=== PATIENT | male | born 1985 | race Caucasian/White ===

== ENCOUNTER 2018-06-21 08:55 | Outpatient (CLI) | payer MEDICAID, SELFPAY ==
[2018-06-21 09:53] LABS: Hemoglobin A1C 5.4 % (4.5-6.2)
[2018-06-21 10:14] LABS: ALT 39 U/L (12-78); AST 18 U/L (15-37); Albumin 4.1 g/dL (3.4-5.0); Alkaline Phosphatase 112 U/L (46-116); Anion Gap 9.4 mmol/L (3-11); BUN 13 mg/dL (7-18); Bilirubin, Total 0.6 mg/dL (0.2-1.0); CO2 24.6 mmol/L (21.0-32.0); CREATININE 0.96 mg/dL (0.70-1.30); Calcium 9.1 mg/dL (8.5-10.1); Chloride 104 mmol/L (98-107); Glucose 106 mg/dL (70-100); Sodium 138 mmol/L (136-145); Total Protein 7.4 g/dL (6.4-8.2)
[2018-06-22 15:24] LABS: Lyme Ab w Rflx to Lyme Confirm Negative
[2018-06-22 21:32] LABS: Anaplasma phagocytophilum Negative (Negative); B. miyamotoi PCR Negative (Negative); Babesia divergens/MO-1 Negative (Negative); Babesia duncani Negative (Negative); Babesia microti Negative (Negative); Ehrlichia chaffeensis Negative (Negative); Ehrlichia ewingii/canis Negative (Negative); Ehrlichia muris eauclairensis Negative (Negative)
== END 2018-06-21 08:56 ==
PROVIDERS: PCP Family Medicine; Visit Provider Nurse Practitioner Psychiatric/Mental Health
DX: F33.1 Major depressive disorder, recurrent, moderate (principal); S80.862A Insect bite (nonvenomous), left lower leg, initial encounter; W57.XXXA Bitten or stung by nonvenomous insect and other nonvenomous arthropods, initial encounter
CPT/HCPCS: 36415; 80053; 83036; 86618; 87798

== ENCOUNTER 2018-11-15 17:30 | Emergency (ER) | payer MEDICAID, SELFPAY ==
[2018-11-15 17:31] VITALS: PULSE 107; RESP 20; TEMP 36.9; O2SAT 98
--- NOTE | 2018-11-15 17:41 | NUR.NOTE ---
patient refuses hard collar at the moment, examined patient Nursing Note:
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
[2018-11-15] MEDS: LORazepam 2 MG/ML VIAL 0.5 MG IVP (18:00)
[2018-11-15] MEDS: Normal Saline 1,000 ML 150 ML IV (18:01)
--- NOTE | 2018-11-15 18:10 | NUR.NOTE ---
patient medicated per MD order Nursing Note:
--- NOTE | 2018-11-15 18:17 | NUR.NOTE ---
patient to DI Nursing Note:
[2018-11-15 18:18] LABS: Abs Immature Grans 0.02 k/cumm (0.0-0.09); Absolute Basophil Count 0.05 k/cumm (0.0-0.2); Absolute Monocyte Count 0.46 k/cumm (0.11-0.7); Absolute Neutrophil Count 4.39 k/cumm (1.2-6.7); Basophils % 0.6; Eosinophils % 1.2; HCT 52.2 % (40.0-50.0); HGB 18.1 g/dL (13.5-17.5); Immature Grans % 0.2; Lymphocytes % 38.9; Mean Corp. HGB Concentration 34.7 g/dL (32.0-36.0); Mean Corpuscular Hemoglobin 30.4 pg (27.0-33.0); Mean Corpuscular Volume 87.7 fL (80-95); Mean Platelet Volume 10.8 fL (8.0-11.0); Monocytes % 5.6; Neutrophils % 53.5; Platelet Count 346 x1000/uL (130-400); RBC 5.95 m/cumm (4.50-6.00); RBC Distribution Width 13.1 % (11.8-14.1); White Blood Cell Count 8.22 k/cumm (4.4-10.8)
--- NOTE | 2018-11-15 18:18 | NUR.NOTE ---
patient voided, no gross hematuria Nursing Note:
[2018-11-15 18:31] LABS: ALT 39 U/L (12-78); AST 20 U/L (15-37); Albumin 4.8 g/dL (3.4-5.0); Alkaline Phosphatase 116 U/L (46-116); Anion Gap 13.7 mmol/L (3-11); BUN 8 mg/dL (7-18); Bilirubin, Total 0.4 mg/dL (0.2-1.0); CO2 26.3 mmol/L (21.0-32.0); CREATININE 0.89 mg/dL (0.70-1.30); Calcium 9.4 mg/dL (8.5-10.1); Chloride 103 mmol/L (98-107); Glucose 99 mg/dL (70-100); Potassium 3.2 mmol/L (3.5-5.1); Sodium 143 mmol/L (136-145); Total Protein 8.8 g/dL (6.4-8.2)
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
--- NOTE | 2018-11-15 18:38 | NUR.NOTE ---
patient returned from CT, refuses c-collar, ambulated to restroom, Nursing Note:
[2018-11-15 18:43] VITALS: BP 134/94; PULSE 100; RESP 18; O2SAT 100
[2018-11-15] MEDS: Omnipaque 350 MG/ML 100 ML BTL IJ (19:06)
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
== END 2018-11-15 19:48 | disposition home or self-care (01) ==
PROVIDERS: Emergency Provider Emergency Medicine; PCP Family Medicine
DX: S20.229A Contusion of unspecified back wall of thorax, initial encounter (principal); S10.93XA Contusion of unspecified part of neck, initial encounter; V47.5XXA Car driver injured in collision with fixed or stationary object in traffic accident, initial encounter
CPT/HCPCS: 36415; 74177; 80053; 96361; 96374; 99285; 70450; 71260; 72125; 80320; 85025; 99284; J2060; J3490

== ENCOUNTER 2019-09-08 08:00 | Emergency (ER) | payer MEDICAID, SELFPAY ==
[2019-09-08] VITALS (47 sets, daily range): BP systolic 96–136; BP diastolic 59–91; PULSE 66–91; RESP 10–24; TEMP 37; O2SAT 89–99
[2019-09-08] MEDS: Normal Saline 1,000 ML 1000 ML IV (08:10)
[2019-09-08 08:25] LABS: Abs Immature Grans 0.03 k/cumm (0.0-0.09); Absolute Basophil Count 0.05 k/cumm (0.0-0.2); Absolute Lymphocyte Count 2.15 k/cumm (1.2-3.4); Absolute Monocyte Count 1.04 k/cumm (0.11-0.7); Absolute Neutrophil Count 9.31 k/cumm (1.2-6.7); Basophils % 0.4; Eosinophils % 0.6; HCT 46.3 % (40.0-50.0); HGB 15.7 g/dL (13.5-17.5); Immature Grans % 0.2; Mean Corp. HGB Concentration 33.9 g/dL (32.0-36.0); Mean Corpuscular Hemoglobin 29.9 pg (27.0-33.0); Mean Corpuscular Volume 88.2 fL (80-95); Mean Platelet Volume 10.3 fL (8.0-11.0); Monocytes % 8.2; Neutrophils % 73.6; Platelet Count 380 x1000/uL (130-400); RBC 5.25 m/cumm (4.50-6.00); RBC Distribution Width 12.9 % (11.8-14.1); White Blood Cell Count 12.65 k/cumm (4.4-10.8)
[2019-09-08 08:30] LABS: Absolute Eosinophil Count 0.08 k/cumm (0.0-0.7)
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
[2019-09-08 08:45] LABS: ALT 80 U/L (16-63); AST 30 U/L (15-37); Albumin 4.4 g/dL (3.4-5.0); Alkaline Phosphatase 138 U/L (46-116); Anion Gap 9.9 mmol/L (3-11); BUN 23 mg/dL (7-18); Bilirubin, Total 0.5 mg/dL (0.2-1.0); CO2 29.1 mmol/L (21.0-32.0); CREATININE 1.25 mg/dL (0.70-1.30); Calcium 9.3 mg/dL (8.5-10.1); Chloride 102 mmol/L (98-107); Glucose 79 mg/dL (70-100); Potassium 3.6 mmol/L (3.5-5.1); Sodium 141 mmol/L (136-145); TSH 0.63 uIU/mL (0.36-3.74); Total Protein 8.5 g/dL (6.4-8.2)
[2019-09-08 09:04] LABS: ETHANOL BLOOD < 3.0 mg/dL (<3)
[2019-09-08 09:20] LABS: Salicylate 3.5 mg/dL (2.8-20.0)
[2019-09-08] MEDS: LORazepam 2 MG/ML VIAL 0.5 MG IVP (09:40)
[2019-09-08 09:54] LABS: Acetaminophen < 2 ug/mL (10-30)
--- NOTE | 2019-09-08 12:20 | NUR.NOTE ---
Nursing Note: 2 bottles of medications were given to the [employer] Patching Machine Operator, who then gave them to the girlfriend of the patient. Kemi Ordoñez.
[2019-09-08] MEDS: LORazepam 1 MG TAB PO (13:56)
[2019-09-08 15:00] LABS: Bilirubin Negative (Negative); Blood Negative (Negative); Clarity Clear (Clear); Glucose Negative (Negative); Ketones Negative (Negative); Leukocyte Esterase Negative (Negative); Nitrite Negative (Negative); Specific Gravity 1.015 (1.005-1.025)
[2019-09-08 15:16] LABS: *AMPHETAMINES SCREEN URINE Negative (Negative); *BARBITURATES SCREEN URINE Negative (Negative); *BENZODIAZEPINES SCREEN URINE Negative (Negative); Cannabinoids THC POSITIVE (Negative); Cocaine Screen,Urine POSITIVE (Negative); METHADONE URINE SCREEN POSITIVE (Negative); OPIATES URINE SCREEN POSITIVE (Negative); Tricyclic Antidepressants Negative (Negative)
== END 2019-09-08 15:06 | disposition home or self-care (01) ==
PROVIDERS: Emergency Provider Nurse Practitioner Family; PCP Family Medicine
DX: T14.91XA Suicide attempt, initial encounter (principal); T42.6X2A Poisoning by other antiepileptic and sedative-hypnotic drugs, intentional self-harm, initial encounter; F41.9 Anxiety disorder, unspecified
CPT/HCPCS: 80053; 80307; 93005; 96361; 96374; 99285; 80320; 80329; 81003; 84443; 85025; 93010; J2060

== ENCOUNTER 2019-11-11 01:43 | Outpatient (CLI) | payer MEDICAID, SELFPAY | END 2019-11-11 02:03 | PROVIDERS: PCP Family Medicine; Visit Provider Nurse Practitioner Family | DX: Z79.899 Other long term (current) drug therapy (principal) | CPT/HCPCS: 93005; 93010 ==

== ENCOUNTER 2020-03-06 14:26 | Emergency (ER) | payer MEDICAID, SELFPAY ==
--- NOTE | 2020-03-06 14:30 | DI.RAD_ITS ---
EXAM: XR FOOT RT COMPLETE CLINICAL HISTORY: Crush injury. TECHNIQUE: 2D digital imaging was performed. COMPARISON: No exams were available for comparison FINDINGS: BONES: There is deformity seen in the base the middle phalanx of the right 3rd toe suspicious for a m ildly displaced fracture. No bony destructive lesion is seen. JOINTS: No dislocation present. SOFT TISSUE: Normal. IMPRESSION: Findings suspicious for mildly displaced fracture involving the base of the middle phalanx of the rig ht 3rd toe. Please correlate with the patient's site of pain. DATA REPOSITORY: RADIATION DOSE DELIVERED:
[2020-03-06 14:35] VITALS: BP 163/113; PULSE 95; RESP 14; TEMP 36.7; O2SAT 99
--- NOTE | 2020-03-06 14:35 | ED.GENADUL_ITS ---
Discharge Plan Disposition Patient Disposition: HOME Condition: Stable Discharge Details Chief Complaint: Orthopedic Clinical Impression: Crush injury of toe Primary Care Provider: Benigno Braswell ED Provider: Jennifer Blackmon Home Meds and New Rx's Prescriptions: No Action methylphenidate HCl 20 mg tablet 20 mg PO TID RF: 0 methadone 10 mg/mL concentrate 142 mg PO DAILY RF: 0 Discharge Instructions Instructions: Crush Injury (ED) Additional Instructions: Keep foot elevated, ice every 20 minutes for 3 to 5 days, use compression and postop shoe and be nonweightbearing as much as possible take Tylenol and ibuprofen every 4-6 hours with food as needed return for any problems with vascular severe pain not relieved by medications or any concerns or worsening. Follow up with primary care provider in 3-5 days. Return to ED sooner if any worsening or concerns. Increase oral fluids. Stand Alone Forms: Work Release Referrals: Benigno Braswell DO [Primary Care Provider] - Medical Decision Making 34-year-old male presents with right foot pain after dropping a trailer hitch o nto his foot at 8:00 this morning. He has been ambulatory on extremity. He does have a contusion noted at the base of his second and third toe. His third toe is swollen and tender to palpation. Cap refill is 3 seconds. Does have dorsal pedal pulses intact. No other tenderness to his ankle or foot calcaneal noted with palpation. Patient states he did not take any Tylenol or ibuprofen prior to arrival offered medication which he declined at this time. X-ray of foot ordered to rule out fracture. Patient given 100 mg ibuprofen p.o. in department x1. I personally reviewed images for foot x-ray. No obvious dislocation or fracture noted. Toes gustavo taped second third and fourth toes. Postop shoe ordered and crutches. Patient given home care instructions including rice rest ice compr ession elevation. Given red flags to return for. Verbalized understanding HPI General Mode of arrival: ambulatory . Date/Time Provider Initiated Documentation: 03/06/20 14:28 . Limitations to Documentation: no limitations . Information obtained by: patient . HPI Narrative: 34-year-old male presents with right foot pain after dropping a trailer hitch onto his foot at 8:00 this morning. He has been ambulatory on extremity. He does have a contusion noted at the base of his second and third toe. His third toe is swollen and tender to palpation. Cap refill is 3 seconds. Does have dorsal pedal pulses intact. No other tenderness to his ankle or foot calcaneal noted with palpation. Patient states he did not take any Tylenol or ibuprofen prior to arrival offered [facility] cation which he declined at this time. Related Data Home Medications Medication Instructions Recorded Confirmed methylphenidate HCl 20 mg tablet 20 mg PO TID tab 01/23/20 03/06/20 methadone 10 mg/mL oral concentrate 142 mg PO DAILY ml 01/30/20 03/06/20 Allergies Allergy/AdvReac Type Severity Reaction Status Date / Time Sulfa (Sulfonamide Allergy Severe Anaphylaxsi Verified 03/06/20 14:41 Antibiotics) s General ABBY: 2 Review of Systems Narrative: Constitutional: Negative for weight loss, alert and oriented, well groomed, normal body habitus, appears comfortable. HEENT: Denies trauma, headaches, blurry vision, nasal discharge, sore throat, trouble swallowing. Chest: Denies chest pain, palpitations, irregular rhythm, hypertension. Respiratory: Denies Shortness of breath, cough, hemoptysis. GI: Denies abdominal pain, nausea, vomiting, diarrhea, constipation. : Denies dysuria, hematuria, flank pain, rectal bleeding. Extremities: Complaining of right foot pain after a crushing type injury. Neuro: Denies dizziness, blurry vision, weakness, syncope, headache or facial numbness. Hematologic: Denies easy bruising, intolerance to heat or cold, hair loss. [facility] Medical History ADHD (Acute) [facility] History of substance abuse (Acute) Major depressive disorder ([facility] ([facility]) dependence, daily use (Acute) [facility] Family History Mother , MVA at age 30. Asthma Father No problems noted. Sister No problems noted. Sister No problems noted. 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 Appears stated age. Normal body habitus. Head: Normocephalic, no trauma. Eyes: Pupils PERRLA, Red reflex noted, EOM's intact. Eyelids symmetrical without lesions, discharge, or swelling. ENT: Bilateral TM's WNL, External ear normal to inspection, no mastoid TTP, swelling, or erythema, Nasal turbinates WNL, no nasal discharge. Normal dentition, Posterior pharynx WNL, no exudate. Chest: RRR, Normal S1, S2, distal pulses intact. Resp: Lungs clear to auscultation bilaterally, no wheezes, rales, or rhonchi. Musculoskeletal: Normal gait, 5/5 strength to all four extremities. Dorsum of his right foot contused at the base of his second and third toes. Third toe is swollen tender to palpation. Cap refill is 3 seconds. Does have intact dorsal pedal pulse. No other tenderness or obvious deformity noted to his calcaneal, ankle, or foot. Skin: No suspicious rashes or lesions. Capillary refill less than 2 sec. Neurologic: Cranial nerves II-XII intact. Alert and oriented x 3. DTR's intact. Hematologic/Lymphatic: No ecchymosis, no lymphadenopathy.
[2020-03-06] MEDS: Ibuprofen 800 MG TAB PO (14:51)
[2020-03-06 16:00] VITALS: BP 163/113; PULSE 95; RESP 14; TEMP 36.7; O2SAT 99
--- NOTE | 2020-03-07 12:04 | ED.FU.B_ITS ---
Phone call placed to patient regarding yesterday's visit. After reviewing x- rays does appear to have possibly a fracture noted to the base of his third phalanx. At the time of discharge patient was given crutches and a postop shoe and gustavo tape which would have been the appropriate treatment. Voicemail left on patient's cell phone.
== END 2020-03-06 16:03 | disposition home or self-care (01) ==
PROVIDERS: Emergency Provider Registered Nurse Emergency; PCP Family Medicine
DX: S97.121A Crushing injury of right lesser toe(s), initial encounter (principal); S90.121A Contusion of right lesser toe(s) without damage to nail, initial encounter; W20.8XXA Other cause of strike by thrown, projected or falling object, initial encounter
CPT/HCPCS: 99284; 73630; 99283; E0114

== ENCOUNTER 2022-12-18 10:28 | Emergency (ER) | payer MEDICAID, SELFPAY ==
--- NOTE | 2022-12-18 10:30 | DI.RAD_ITS ---
Exam(s) XR FINGER RT MIDDLE EXAM: XR FINGER RT MIDDLE CLINICAL HISTORY: dorsal injury/lac, ? FB. TECHNIQUE: 2D digital imaging was performed. Three views. COMPARISON: CR RIGHT HAND COMPLETE from 02/10/2017 FINDINGS: BONES: No acute fracture is present. No bony destructive lesion is seen. JOINTS: No dislocation present. SOFT TISSUE: Swelling distal phalanx and nail bed. No foreign bodies in this location. Calcificatio ns along in the soft tissues along the distal aspect of the proximal phalanx without visible overlyin g swelling or air.. This was not seen on 2017 exam but may not be related to the current injury. IMPRESSION: Soft tissue injury. DATA REPOSITORY: RADIATION DOSE DELIVERED:
[2022-12-18 10:33] VITALS: BP 147/86; PULSE 83; RESP 18; TEMP 36.8; O2SAT 97
--- NOTE | 2022-12-18 10:41 | ED.GENADUL_ITS ---
Discharge Plan Disposition Patient Disposition: Home Condition: Improving Discharge Details Clinical Impression: Foreign body of finger of right hand, Laceration of right middle finger Primary Care Provider: Benigno Brawsell ED Provider: Bhupinder Vela Home Meds and New Rx's Prescriptions: New cephalexin 500 mg capsule 500 mg PO TID 5 Days Qty: 15 0RF Continued methylphenidate HCl 20 mg tablet 20 mg PO TID Label Comments: 12/24/2019 [facility] ov Rx Instructions: takes as 40 mg in the AM, 20 mg in PM methadone 10 mg/mL concentrate 147 mg PO DAILY Label Comments: 03/27/20-reported per MARGARITA divalproex [Depakote] 500 mg Tablet,Delayed Release (Dr/Ec) 500 mg PO DAILY Discharge Instructions Instructions: Finger Laceration (ED) Additional Instructions: Elevate the hand above the level of the heart to reduce pain and swelling. May use Tylenol 650 to 1000 mg every 6 hours, and/or ibuprofen 600 to 800 mg every 8 hours as needed for pain. You may apply cool compress/ice to area to reduce discomfort. We will refer you to orthopedics for follow-up. The orthopedic office number is [phone]. Return if you develop a fever, foul-smelling drainage from the wound, or any other acute concerns. Please take the antibiotics as prescribed until finished. Medical Decision Making 37-year-old male suffered a right long finger laceration from shards of glass while hanging a television. Questions whether there is residual foreign body present. No motor or sensory dysfunction. Patient's tetanus is up-to-date. He was referred for x-ray which does reveal retained glass fragments. The patient was anesthetized, the wound was explored and irrigated, was able to remove 2 large glass fragments but did not appreciate others. I will place him on a course of antibiotics. We will ask for him to follow-up in orthopedic clinic to ensure good wound healing and no persistent effects of the retained foreign body. 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 He is stable and understands follow-up and return precautions HPI General Mode of arrival: ambulatory . Date/Time Provider Initiated Documentation: 12/18/22 10:28 . Limitations to Documentation: no limitations . Information obtained by: patient . History of Present Illness 37 year old M presents to the emergency department with the chief complaint of Right long finger injury/laceration, described as mild, and is localized to the right and upper extremity. Patient reports no radiation. Patient started experienc ing this hour(s) and it has been constant. No relieving factors improve symptom(s), No exacerbating factors reported . Patient notes denies weakness. Patient did receive the following treatments prior to arrival, none Related Data Home Medications Medication Instructions Recorded Confirmed methylphenidate HCl 20 mg tablet 20 mg PO TID 01/23/20 12/18/22 methadone 10 mg/mL oral concentrate 147 mg PO DAILY 03/27/20 12/18/22 cephalexin 500 mg capsule 500 mg PO TID 5 days #15 caps 12/18/22 divalproex 500 mg tablet,delayed 500 mg PO DAILY 12/18/22 12/18/22 release (Depakote) Previous Rx's Medication Instructions Recorded cephalexin 500 mg capsule 500 mg PO TID 5 days #15 caps 12/18/22 Allergies Allergy/AdvReac Type Severity Reaction Status Date / Time Sulfa (Sulfonamide Allergy Severe Anaphylaxsi Verified 12/18/22 10:38 Antibiotics) s General Stated Complaint: Laceration ABBY: 4 Review of Systems Narrative: Tetanus up-to-date. No numbness or weakness of the hand. No other injury. PFSH All Active Problems (Updated 12/18/22 @ 11:24 by Bhupinder Vela MD) Foreign body of finger of right hand (Acute) Laceration of right middle finger (Acute) Polysubstance (including opioids) dependence, daily use (Acute) [facility] Zehra ADHD (Acute) [facility] Zehra Major depressive disorder (Chronic) [facility] Zehra Tobacco abuse disorder (Acute) Displaced fracture of body of hamate [unciform] bone, right wrist, initial encounter for closed fracture (Acute) Closed displaced fracture of body of hamate of right wrist with routine healing (Acute 12/16/16) Medical History History of substance abuse Family History Mother , MVA at age 30. Asthma Father No problems noted. Sister No problems noted. Sister No problems noted. 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 Pleasant, well groomed, interactive. HEAD: Normocephalic, atraumatic ENT: Mucous membranes moist, oropharynx unremarkable, External ear exam unremarkable EYES: PERRL, EOMI NECK: Full ROM, no REINALDO, no menigismus CHEST/RESP: No respiratory distress EXT: Full ROM, the right long finger has a laceration on the dorsal surface overlying of the distal proximal phalanx. Normal distal sensation and motor is preserved. Neuro: Grossly normal neurologic exam, conversant, interactive. Psych: Speech fluent, thoughts congruent, affect normal Course Vital Signs Vital signs: Vital Signs Temperature 36.8 C 12/18/22 10:33 Pulse 83 12/18/22 10:33 Respiratory Rate 18 12/18/22 10:33 Blood Pressure 147/86 H 12/18/22 10:33 Pulse Oximetry 97 12/18/22 10:33 Temperature 36.8 C 12/18/22 10:33 Temperature Source Skin 12/18/22 10:33 Pulse 83 12/18/22 10:33 Respiratory Rate 18 12/18/22 10:33 Respiratory Effort 12/18/22 10:38 Blood Pressure 147/86 H 12/18/22 10:33 Blood Pressure Position Sitting 12/18/22 10:33 Pulse Oximetry 97 12/18/22 10:33 Oxygen Delivery Method Room Air 12/18/22 10:33 Oxygen Flow Rate 0 12/18/22 10:33 Procedures Laceration Laceration 1: Site: hand Side (If applicable): right Size (cm): 2.5 Description: stellate and flap Depth: simple, single layer Local Anesthetic: Lidocaine 1% Amount of anesthesia used (mL): 3 Pre-repair: wound explored and irrigated extensively Skin layer closed with: other (Prolene) Size (cm): 4-0 Number of sutures: 5
--- NOTE | 2022-12-18 11:06 | DI.VRAD_ITS ---
PROCEDURE INFORMATION: Exam: XR Right Finger(s) Exam date and time: 12/18/2022 10:53 AM Age: 37 years old Clinical indication: Injury or trauma; Other: Cut by glass, ? fb; Laceration; Right; Middle finger; Patient HX: Dorsal injury/lac, ? fb TECHNIQUE: Imaging protocol: Radiologic exam of the Right fingers. Views: Minimum 2 views. COMPARISON: CR RIGHT HAND COMPLETE 02/10/2017 10:29 AM FINDINGS: Bones/joints: No acute fracture or dislocation. Joint spaces maintained. Soft tissues: Middle finger swelling. Irregular discontinuous linear densities in the dorsal soft tissues overlying the middle finger proximal phalanx consistent with retained foreign bodies. IMPRESSION: Retained glass fragments within the dorsal soft tissues overlying the middle finger proximal phalanx. Dictated and Authenticated by: Joshua Marino MD. Ordering:NEREIDA Roe MD
== END 2022-12-18 11:53 | disposition home or self-care (01) ==
PROVIDERS: Emergency Provider Emergency Medicine; PCP Family Medicine
DX: S61.222A Laceration with foreign body of right middle finger without damage to nail, initial encounter (principal); W25.XXXA Contact with sharp glass, initial encounter; Y93.89 Activity, other specified
CPT/HCPCS: 12031; 99283; 73140; 99284

== ENCOUNTER 2022-12-23 08:06 | Emergency (ER) | payer MEDICAID, SELFPAY ==
[2022-12-23 08:09] VITALS: BP 165/100; PULSE 79; RESP 17; TEMP 37.4; O2SAT 100
--- NOTE | 2022-12-23 08:25 | W.ED.GENAD ---
Discharge Plan Disposition Patient Disposition: Home Condition: Stable Discharge Details Clinical Impression: Puncture wound of forearm, right Primary Care Provider: Benigno Braswell ED Provider: Jak Gould Home Meds and New Rx's Prescriptions: New cephalexin 500 mg capsule 500 mg PO QID 5 Days Qty: 20 0RF ibuprofen 800 mg tablet 800 mg PO TID PRNQty: 20 0RF Continued methylphenidate HCl 20 mg tablet 20 mg PO TID Label Comments: 12/24/2019 [facility] ov Rx Instructions: takes as 40 mg in the AM, 20 mg in PM methadone 10 mg/mL concentrate 147 mg PO DAILY Label Comments: 03/27/20-reported per MARGARITA divalproex [Depakote] 500 mg Tablet,Delayed Release (Dr/Ec) 500 mg PO DAILY Rx Instructions: Pt reports he is no longer taking this medication Discharge Instructions Instructions: Puncture Wound (ED) Additional Instructions: Ibuprofen and Keflex as directed. Rest, elevate, cool compresses every 2 hours for 20 minutes. Change dressing at least once daily. Wear sling to avoid movement of your arm, be sure to do passive range of motion of your shoulder at least 4 times daily to avoid a frozen shoulder. Please watch for new or worsening symptoms and return to the ER for any concerns. I personally spoke with our orthopedic team, Dr. Gomez, he will follow you in his office next week. I have placed you on the orthopedic list to help expedite this process. Please contact his office later today or first thing Monday. Referrals: Kali Gomez MD [ [facility] STAFF PHYSICIAN] - Medical Decision Making This is a 37-year-old gentleman, tetanus status up-to-date, [id number], reports that he was loading his electric darrel into his truck, in the process the lever broke and he sustained a deep laceration-puncture wound to his right forearm. Denies any other injury. Reports moderate pain, bleeding, paresthesias in his forearm and specifically his fourth and fifth digits. Clinically he appears neuro, vascular, tendon intact. Given the mechanism of injury, will obtain CTA of the right upper extremity for further evaluation CTA unremarkable. Case then discussed with Dr. Gomez, orthopedics. Does not believe that surgical washout is necessary at this time. Recommends thorough washout and loose approximation. 2 g of Rocephin now, provide an additional 5 days of oral Keflex. Sling for comfort. He will see the patient in the office next week. I did relay this conversation with the patient and then placed the patient on the orthopedic list. Upon reevaluation patient appears well, calm. He is now moving his wrist and fingers much more freely. Remains neuro, vascular, tendon intact. No evidence of decompensation. No evidence of compartment syndrome Laceration thoroughly irrigated, cleaned, loosely approximated, please see procedural note. Patient received his 2 g IV Rocephin. The wound was then appropriately dressed with a compression antibiotic dressing and a sling applied. We did discuss the importance of passive range of motion to avoid frozen shoulder. Standard discharge and return precautions were provided. Patient understands, is agreeable to this plan, and has no additional questions or concerns upon discharge. This documentation was generated using Finderyation system, please disregard any oddities of phrase or misspellings. Medical Records Medical records reviewed: Yes I reviewed the patient's medical records. Imaging Data Radiologic Study: Attestation: I personally reviewed and interpreted this imaging study as follows: Imaging: CT Scan Radiologist's impression: Exam(s) CT UPPER EXTREMITY RT CTA EXAM: CT UPPER EXTREMITY RT CTA CLINICAL HISTORY: 4 cm puncture to R forearm TECHNIQUE: Imaging Protocol: Axial computed tomography images with coronal and sagittal reformatted images were created and reviewed. CONTRAST MATERIAL: Intravenous: Omnipaque 350 Contrast volume:structured data in ml Contrast route:IV - Oral: yes / no COMPARISON: CT Private^CAP_WITH (Adult) from 11/15/2018 CR,XR XR FINGER RT MIDDLE from 12/18/2022 FINDINGS: Osseous: No fractures evident. Soft tissues: Large volar form aspect wound with skin and subdermal tissue loss. Hematoma evident as well as some deeper tissue gas bubbles. Vascular: The radial and ulnar arteries are intact. The inter osseous artery is intact. Brachial artery is intact. IMPRESSION: Volar forearm large soft tissue wound. No laceration of the arteries evident. Lab Data Lab results reviewed: Yes I reviewed the patient's lab results. Labs: Laboratory Tests Range/Units 12/23/22 12/23/22 08:30 08:30 WBC (4.4-10.8) 10^3/uL 15.57 H RBC (4.36-5.78) 10^6/uL 5.42 Hgb (13.5-17.5) g/dL 16.0 Hct (40.0-50.0) % 47.8 MCV (80-95) fL 88 MCH (27.0-33.0) pg 29.5 MCHC (32.0-36.0) % 33.5 RDW (11.8-14.1) % 12.6 Plt Count (130-400) 10^3/uL 319 MPV (8.0-11.0) fL 10.5 Immature Gran % 0.4 Neutrophils % 75.6 Lymphocytes % 17.2 Monocytes % 5.7 Eosinophils % 0.7 Basophils % 0.4 Nucleated RBC % (0.0-0.3) % 0.0 Absolute Neutrophils (1.2-6.7) 10^3/uL 11.77 H Absolute Lymphocytes (1.2-3.4) 10^3/uL 2.68 Absolute Monocytes (0.1-0.8) 10^3/uL 0.89 H Absolute Eosinophils (0.0-0.7) 10^3/uL 0.11 Absolute Basophils (0.0-0.2) 10^3/uL 0.06 Sodium (136-145) mmol/L 142 Potassium (3.5-5.1) mmol/L 3.8 Chloride (98-107) mmol/L 104 Carbon Dioxide (21.0-32.0) mmol/L 28.7 Anion Gap (3-11) mmol/L 9.3 BUN (7-18) mg/dL 19 H Creatinine (0.70-1.30) mg/dL 1.0 Est GFR (CKD-EPI 2020) (mL/min/1.73m2) 99.41 Glucose (74-106) mg/dL 107 H Calcium (8.5-10.1) mg/dL 9.4 Total Bilirubin (0.2-1.0) mg/dL 0.7 AST (15-37) U/L 18 ALT (16-63) U/L 18 Alkaline Phosphatase (46-116) U/L 103 Total Protein (6.4-8.2) g/dL 8.0 Albumin (3.4-5.0) g/dL 4.5 HPI General Mode of arrival: ambulatory. Date/Time Provider Initiated Documentation: 12/23/22 08:23. Limitations to Documentation: no limitations. Information obtained by: patient. History of Present Illness 37 year old M presents to the emergency department with the chief complaint of R arm lac, described as moderate, with intensity rated at 7. Quality is described as aching, and is localized to the right and upper extremity. Patient reports no radiation. Patient started experiencing this hour(s) (1) and it has been constant. No relieving factors improve symptom(s), Movement worsens symptoms . Patient notes no other symptoms.. Patient did receive the following treatments prior to arrival, none Related Data Home Medications Medication Instructions Recorded Confirmed methylphenidate HCl 20 mg tablet 20 mg PO TID 01/23/20 12/23/22 methadone 10 mg/mL oral concentrate 147 mg PO DAILY 03/27/20 12/23/22 divalproex 500 mg tablet,delayed 500 mg PO DAILY 12/18/22 12/23/22 release (Depakote) cephalexin 500 mg capsule 500 mg PO QID 5 days #20 caps 12/23/22 ibuprofen 800 mg tablet 800 mg PO TID PRN #20 tabs 12/23/22 Previous Rx's Medication Instructions Recorded cephalexin 500 mg capsule 500 mg PO QID 5 days #20 caps 12/23/22 ibuprofen 800 mg tablet 800 mg PO TID PRN #20 tabs 12/23/22 Allergies Allergy/AdvReac Type Severity Reaction Status Date / Time Sulfa (Sulfonamide Allergy Severe Anaphylaxsi Verified 12/23/22 08:17 Antibiotics) s General Stated Complaint: Laceration ABBY: 3 Review of Systems Constitutional Constitutional: Denies fever(s) and Denies weakness Musculoskeletal Musculoskeletal: Denies arthralgias, Denies numbness, Reports stiffness and Reports tingling Integumentary/Breasts Skin/Breast: Denies erythema and Denies rash Neurologic Neurologic: Denies numbness, Reports tingling and Denies weakness [facility] All Active Problems (Updated 12/23/22 @ 11:05 by AMADOR Stevenson) Foreign body of finger of right hand (Acute) Laceration of right middle finger (Acute) Puncture wound of forearm, right (Acute) Polysubstance (including opioids) dependence, daily use (Acute) [facility] Zehra ADHD (Acute) [facility] Zehra Major depressive disorder (Chronic) [facility] Mathieson Tobacco abuse disorder (Acute) Displaced fracture of body of hamate [unciform] bone, right wrist, initial encounter for closed fracture (Acute) Closed displaced fracture of body of hamate of right wrist with routine healing (Acute 12/16/16) Medical History History of substance abuse Family History Mother , MVA at age 30. Asthma Father No problems noted. Sister No problems noted. Sister No problems noted. 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 What type of physical activity do you participate in: other Details: physically active daily Seatbelt use: always Drive intox or ride w/intox 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 car 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: No Working smoke detector in home: Yes Carbon monox detector in home: Yes Do you feel safe at home: Yes Do you feel safe in your relationship?: Yes Exam Const General: cooperative, healthy appearing, anxious (Slightly) and other (Mildly uncomfortable) Orientation: alert and awake HENID Head: normal to inspection, normocephalic and atraumatic Eyes Conjunctivae: conjunctivae normal Neck Neck: normal visual inspection, full ROM, trachea midline and supple Resp Effort & Inspection: normal respiratory effort and able to speak in complete sentences Cardio Rate: regular rate Rhythm: regular rhythm Skin General skin exam: no rashes or lesions noted Neuro General: patient alert, patient awake, moves all extremities and no focal motor deficits Cognition: normal cognition Speech: speech normal Gait: normal gait Sensory Exam: no sensory deficits noted and normal double simultaneous stimulation Extrem General: capillary refill normal Elbow/forearm/wrist images: 1. 5 cm laceration with active oozing, no obvious arterial bleed or foreign body. There is localized tenderness throughout as well as swelling. No erythema or warmth. Patient reports subjective paresthesias to his fourth and fifth digit but neurologically this appears to be intact. Normal capillary refill and radial pulse. Full range of motion at his elbow. Patient is able to both flex and extend his wrist although reports increased pain with extension. Patient is able to wiggle all of his fingers. Reports increased pain with movement of his third, fourth, fifth digits. The patient is able to nearly make a full fist, able to fully extend his fingers. Other: 5 sutures intact right third digit, no signs of infection. Psych Appearance: grossly normal Mental Status: mental status grossly normal Course Vital Signs Vital signs: Vital Signs Temperature 37.4 C 12/23/22 08:09 Pulse 79 12/23/22 08:09 Respiratory Rate 17 12/23/22 08:09 Blood Pressure 165/100 H 12/23/22 08:09 Pulse Oximetry 100 12/23/22 08:09 Temperature 37.4 C 12/23/22 08:09 Temperature Source Temporal Artery Scan 12/23/22 08:09 Pulse 79 12/23/22 08:09 Respiratory Rate 17 12/23/22 08:09 Respiratory Effort 12/23/22 08:14 Blood Pressure 165/100 H 12/23/22 08:09 Blood Pressure Position Sitting 12/23/22 08:09 Pulse Oximetry 100 12/23/22 08:09 Oxygen Delivery Method Room Air 12/23/22 08:09 Oxygen Flow Rate 0 12/23/22 08:09 Pain Level 8 12/23/22 08:14 Procedures Laceration Laceration 1: Site: upper extremity Side (If applicable): right Size (cm): 5 Description: linear and clean Depth: simple, single layer Local Anesthetic: Lidocaine 2%, Bupivicaine 0.5%, with Epi and other anesthetic ([id number] mixture) Amount of anesthesia used (mL): 10 Pre-repair: wound explored, irrigated extensively and deep structures intact Skin layer closed with: nylon Size (cm): 4-0 Number of sutures: 4 Technique: simple, interrupted (loose approximation)
[2022-12-23 08:46] VITALS: BP 129/83; PULSE 76; O2SAT 100
[2022-12-23 08:50] LABS: Abs Immature Grans 0.06 10^3/uL (0.0-0.06); Absolute Basophil Count 0.06 10^3/uL (0.0-0.2); Absolute Eosinophil Count 0.11 10^3/uL (0.0-0.7); Absolute Lymphocyte Count 2.68 10^3/uL (1.2-3.4); Absolute Monocyte Count 0.89 10^3/uL (0.1-0.8); Absolute Neutrophil Count 11.77 10^3/uL (1.2-6.7); Basophils % 0.4; Eosinophils % 0.7; HCT 47.8 % (40.0-50.0); Immature Grans % 0.4; Lymphocytes % 17.2; MCH 29.5 pg (27.0-33.0); MCHC 33.5 % (32.0-36.0); MCV 88 fL (80-95); MPV 10.5 fL (8.0-11.0); Monocytes % 5.7; Neutrophils % 75.6; Platelet Count 319 10^3/uL (130-400); RBC 5.42 10^6/uL (4.36-5.78); RDW 12.6 % (11.8-14.1); RDW-SD 40.7 fL; WBC 15.57 10^3/uL (4.4-10.8)
[2022-12-23 08:59] LABS: ALT 18 U/L (16-63); AST 18 U/L (15-37); Albumin 4.5 g/dL (3.4-5.0); Alkaline Phosphatase 103 U/L (46-116); Anion Gap 9.3 mmol/L (3-11); BUN 19 mg/dL (7-18); Bilirubin, Total 0.7 mg/dL (0.2-1.0); CO2 28.7 mmol/L (21.0-32.0); Calcium 9.4 mg/dL (8.5-10.1); Chloride 104 mmol/L (98-107); Estimated GFR 99.41 (mL/min/1.73m2); Glucose 107 mg/dL (74-106); Potassium 3.8 mmol/L (3.5-5.1); Sodium 142 mmol/L (136-145)
[2022-12-23] MEDS: Omnipaque 350 MG/ML 100 ML BTL IJ (09:04)
[2022-12-23] MEDS: Normal Saline - Diluent 50 ML VIAL IJ (09:08)
--- NOTE | 2022-12-23 09:08 | DI.CT_ITS ---
Exam(s) CT UPPER EXTREMITY RT CTA EXAM: CT UPPER EXTREMITY RT CTA CLINICAL HISTORY: 4 cm puncture to R forearm TECHNIQUE: Imaging Protocol: Axial computed tomography images with coronal and sagittal reformatted images were created and reviewed. CONTRAST MATERIAL: Intravenous: Omnipaque 350 Contrast volume:structured data in ml Contrast route:I V - Oral: yes / no CR,XR XR FINGER RT MIDDLE from 12/18/2022 FINDINGS: Osseous: No fractures evident. Soft tissues: Large volar form aspect wound with skin and subdermal tissue loss. Hematoma evident as well as some deeper tissue gas bubbles. Vascular: The radial and ulnar arteries are intact. The inter osseous artery is intact. Brachial ar chin is intact. IMPRESSION: Volar forearm large soft tissue wound. No laceration of the arteries evident. Called by myself to ER provider. RADIATION DOSE DELIVERED: 90.38mGy.cm Total DLP DATA REPOSITORY: All CT scans at this facility are submitted to the National Radiology Data Registry (NRDR) Dose Index Registry (DIR) with the [employer] ([employer]). RADIATION OPTIMIZATION: All CT scans at this facility use at least one of these dose optimization te chniques: automated exposure control; mA and/or kV adjustment per patient size (includes targeted exa ms where dose is matched to clinical indication); or iterative reconstruction.
[2022-12-23] MEDS: cefTRIAXone 2 GM/50 ML BAG IVPB (10:19)
[2022-12-23] MEDS: Bupivacaine 0.5% Pres-Free 30 ML VIAL (10:23)
[2022-12-23 11:18] VITALS: BP 143/90; PULSE 84; RESP 18; TEMP 37; O2SAT 97
--- NOTE | 2022-12-26 13:24 | NUR.NOTE ---
patient called to state his abx was finished and wonder if he was supposed to be on more abx as his appt with his new pcp is not until monday and wound is starting to look red with possible infection. advised patient he would need to come back in and be reassessed. patient states he does not have a ride and would have to call the ambulance for transfer.
== END 2022-12-23 11:20 | disposition home or self-care (01) ==
PROVIDERS: Emergency Provider Physician Assistant; PCP Family Medicine
DX: S51.831A Puncture wound without foreign body of right forearm, initial encounter (principal); F90.9 Attention-deficit hyperactivity disorder, unspecified type; W26.8XXA Contact with other sharp object(s), not elsewhere classified, initial encounter; Y93.89 Activity, other specified
CPT/HCPCS: 12002; 36415; 73206; 80053; 96365; 99285; 85025; 99284; J3490

== ENCOUNTER 2024-03-07 00:26 | Emergency (ER) | payer MEDICAID, SELFPAY ==
[2024-03-07] VITALS (72 sets, daily range): BP systolic 92–134; BP diastolic 44–95; PULSE 70–88; RESP 10–27; TEMP 36.5–36.6; O2SAT 97–98
--- NOTE | 2024-03-07 00:45 | DI.CT_ITS ---
Exam(s) CT HEAD WO EXAM: CT HEAD WO CLINICAL HISTORY: possible syncope. TECHNIQUE: Imaging Protocol: Axial computed tomography images with coronal and sagittal reformatted images were created and reviewed COMPARISON: CT CT HEAD CERVICAL SPINE WO from 11/15/2018 FINDINGS: Ventricles and Extra axial spaces: Normal in size and morphology for the patient's age. Hemorrhage: None. Cerebral parenchyma: Normal. Midline shift: None. Brainstem/Cerebellum: Normal. Calvarium: Normal. Visualized Paranasal sinuses/Mastoids: Clear. Soft Tissues: Unremarkable. IMPRESSION: No acute intracranial process. RADIATION DOSE DELIVERED: 654.21mGy.cm Total DLP DATA REPOSITORY: All CT scans at this facility are submitted to the National Radiology Data Registry (NRDR) Dose Index Registry (DIR) with the [employer] (A[employer]). RADIATION OPTIMIZATION: All CT scans at this facility use at least one of these dose optimization te chniques: automated exposure control; mA and/or kV adjustment per patient size (includes targeted exa ms where dose is matched to clinical indication); or iterative reconstruction.
--- NOTE | 2024-03-07 00:45 | RT.EKG_ITS ---
APPROVED REPORT Exam: Resting ECG Reason for Exam: possible syncope Patient Location: E HR:72 bpm ECG Measurements Heart Rate 72 AXIS DE 153 P 80 QRSd 94 QRS 100 QT 399 T 32 QTc 435 Conclusion Sinus rhythm...normal P axis, V-rate 60- 99 Right axis deviation...QRS axis (100,269) appropriate intervals no ST segment or T wave abnormalities to suggest occluisve [place]
--- NOTE | 2024-03-07 01:00 | ED.GENADUL_ITS ---
Discharge Plan Disposition Patient Disposition: Home Condition: Good Discharge Details Clinical Impression: Medication reaction Primary Care Provider: Unknown,Unknown ED Provider: Marisela Jaramillo Home Meds and New Rx's Prescriptions: Continued mirtazapine 15 mg tablet 15 mg PO ONCE PRN Patient Comments: TAKE 1/2 TO 1 TABLET BY MOUTH AT NIGHT 1 HOUR BEFORE BEDTIME NEEDED FOR SLEEPLESSNESS OR INSOMNIA ibuprofen 600 mg tablet 600 mg PO Q6H PRN Patient Comments: TAKE 1 TABLET BY MOUTH EVERY 6 HOURS NEEDED FOR BREAKTHROUGH PAIN ondansetron 4 mg tablet,disintegrating 4 mg PO Q8H PRN Patient Comments: DISSOLVE 1 TABLET ON THE TONGUE EVERY 8 HOURS NEEDED FOR NAUSEA OR VOMITING clonidine HCl 0.1 mg tablet 0.1 mg PO Q6H PRN Patient Comments: TAKE 1-2 TABLETS BY MOUTH EVERY 4-6 HOURS NEEDED FOR SWEATING / ANXIETY / RESTLESSNESS. TAKE WITH FOOD AND FLUIDS. HOLD IF DIZZINESS bupropion HCl 150 mg tablet extended release 24 hr 300 mg PO ONCE Patient Comments: START WITH 1 TABLET BY MOUTH DAILY FOR 3 DAYS AND THEN INCREASE TO 2 TABLETS DAILY IN THE MORNING clonazepam 0.5 mg tablet 0.5 mg PO BID PRN Patient Comments: TAKE 1 TABLET BY MOUTH UP TO TWICE DAILY NEEDED FOR ANXIETY OR WITHDRAWALS SYMPTOMS hydroxyzine HCl 50 mg tablet 50 mg PO Q6H Patient Comments: TAKE 1 TABLET BY MOUTH EVERY 6 HOURS NEEDED FOR ANXIETY OR WITHDRAWALS OR SYMPTOMS ibuprofen 800 mg tablet 600 mg PO TID PRN Held buprenorphine-naloxone [Suboxone] 8-2 mg film 3 film sublingual DAILY Hold Instructions: Resume on 03/07/24. Discuss with your prescriber before taking Rx Instructions: use only 2 strips/tabs in mouth at one time, 1 under (each) side of tongue Discharge Instructions Instructions: Buprenorphine/Naloxone (Into the mouth) Additional Instructions: Do not take your suboxone until you discuss with your prescriber. You can continue to take your comfort meds. Continue to avoid opiates or illegal drugs. Call your primary care doctor today to schedule an appoitnment within the next 3 days to follow up on your visit here. Return to the emergency department for new or worsening symptoms including chest pain, difficulty breathing, pass out, or if you have any other concerns. Discharge Data Discharge Date/Time-TO BE ENTERED AT DEPARTURE: 03/07/24 03:31 HPI General Mode of arrival: ambulatory . Date/Time Provider Initiated Documentation: 03/07/24 00:28 . Limitations to Documentation: no limitations . Information obtained by: patient . HPI Narrative: 38yo M with hx opiate use disorder presenting for various concerns. Reports last using fentanyl on 03/03; is in the process of starting suboxone therapy. Denies any substance use since 03/03, has been taking his 'comfort meds' since then (ibuprofen, hydroxyzine, clonidine) for withdrawal symptoms and has been titrating up suboxone for the past 48 hours. Tonight when he took his dose he began to feel unwell, nausated, vomited x 2. Sylvester 'shaky' and 'like my whole skin was on fire', as well as body aches. Thinks he may have passed out, not sure. No chest pain or shortness of breath. Identifies his primary concern at this time as 'feeling slow, like I'm in 8th grade'. Does not feel lightheaded now, does feel slightly nausated still. Otherwise in his usual state of health with no fevers,rash, abdominal pain, dysuria, hematuria, numbness, tingling, focal weakness, vertigo, vision changes, or other concerns. Related Data Home Medications Medication Instructions Recorded Confirmed buprenorphine 8 mg-naloxone 2 mg 3 film sublingual DAILY 03/07/24 03/07/24 sublingual film (Suboxone) bupropion HCl 150 mg 24 hr tablet, 300 mg PO ONCE 03/07/24 03/07/24 extended release clonazepam 0.5 mg tablet 0.5 mg PO BID PRN 03/07/24 03/07/24 clonidine HCl 0.1 mg tablet 0.1 mg PO Q6H PRN 03/07/24 03/07/24 hydroxyzine HCl 50 mg tablet 50 mg PO Q6H 03/07/24 03/07/24 ibuprofen 600 mg tablet 600 mg PO Q6H PRN 03/07/24 03/07/24 ibuprofen 800 mg tablet 600 mg PO TID PRN 03/07/24 03/07/24 mirtazapine 15 mg tablet 15 mg PO ONCE PRN 03/07/24 03/07/24 ondansetron 4 mg disintegrating 4 mg PO Q8H PRN 03/07/24 03/07/24 tablet Allergies Allergy/AdvReac Type Severity Reaction Status Date / Time Sulfa (Sulfonamide Allergy Severe Anaphylaxsi Verified 03/07/24 00:49 Antibiotics) s General Stated Complaint: GenMedical ABBY: 3 Review of Systems Narrative: see HPI Exam Narrative Exam Narrative: General: Alert, well appearing, well nourished, in no acute distress. Head: Normocephalic, atraumatic Neck: Trachea midline, ?Neck supple. ENT: ?MMM.? No oropharygeal lesions or exudate. Cardiac: ?RRR, no murmurs appreciated Resp: No respiratory distress. CTAB. Extremities: ?No deformities.? No peripheral edema. Neuro: ? GCS 15.? PERRL, 2mm to 1mm..? EOMI.? Slow speech, very slow to respond. No dysarthria. Motor- 5/5 strength symmetric bilateral upper and lower extremities Sensation- ?Intact to light touch and symmetric multiple dermatomes including upper and lower extremities Coordination- No dysmetria on finger to nose Gait/station: ?Normal stance.? No truncal ataxia. Steady gait with equal normal steps CRANIAL NERVES: II: Pupils equal and reactive, III, IV, : EOM intact, no gaze preference or deviation, no nystagmus. V: normal sensation in V1, V2, and V3 segments bilaterally VII: no asymmetry, no nasolabial fold flattening VIII: normal hearing to speech IX, X: normal palatal elevation, no uvular deviation XI: 5/5 head turn and 5/5 shoulder shrug bilaterally XII: midline tongue protrusion Course Vital Signs Vital signs: Vital Signs Temperature 36.5 C 03/07/24 00:36 Pulse 88 03/07/24 00:36 Respiratory Rate 22 03/07/24 00:36 Blood Pressure 128/95 H 03/07/24 00:36 Pulse Oximetry 97 03/07/24 00:36 Temperature 36.5 C 03/07/24 00:36 Temperature Source Oral 03/07/24 00:36 Pulse 88 03/07/24 00:36 Respiratory Rate 22 03/07/24 00:36 Respiratory Effort Normal 03/07/24 00:47 Respiratory Depth Normal 03/07/24 00:47 Respiratory Pattern Normal 03/07/24 00:47 Blood Pressure 128/95 H 03/07/24 00:36 Pulse Oximetry 97 03/07/24 00:36 Oxygen Delivery Method Room Air 03/07/24 00:36 Oxygen Flow Rate 0 03/07/24 00:36 Medical Decision Making 38yo M with hx opiate use disorder presenting for various concerns. Reports last using fentanyl on 03/03; is in the process of starting suboxone therapy. Denies any substance use since 03/03, titrating up suboxone for the past 48 hours. Tonight took his dose and began to feel withdrawal symptoms; also thinks he may have passed out (not sure). Vital signs reassuring on arrival, on exam he does not appear to be actively withdrawing at this time, exam is consistent with opiate toxidrome with small pupils, somewhat altered, slow to respond. CINA 4. Denies any opiate ingestion. Given vague history and possible syncope, will evaluate further with EKG/labs/head CT. History & exam not suggestive seizure, infection, meningitis, pulmonary embolism, etc. -EKG NSR, appropriate intervals, RBBB (present in prior EKG on [facility] record review), no ST segment or T wave abnormalities to suggest occlusive [place]. -Labs reviewed as below, CBC with mild leukoctyosis and no anemia, CMP reassuring with no actionable abnormalities, lactate normal. -Head CT independently reviewed, no intracranial bleed or mass on my view, agree with radiology read below. Given tylenol, toradol, zofran, clonidine for symptoms. On reassessment patient more alert, normal speech and response time. Instructed him to discuss his symptoms with his suboxone prescriber prior to taking his next dose. Discharged home; discharge instructions and return precautions were reviewed with patient who verbalized understanding. All questions were answered and he is in full agreement with the plan. Imaging Data Radiologic Study: Imaging: CT Scan Radiologist's impression: IMPRESSION: No acute intracranial hemorrhage or depressed skull fracture. Lab Data Lab results reviewed: Yes I reviewed the patient's lab results. Labs: Laboratory Tests Range/Units 03/07/24 03/07/24 00:40 00:59 WBC (4.4-10.8) 10^3/uL 11.75 H RBC (4.36-5.78) 10^6/uL 5.27 Hgb (13.5-17.5) g/dL 15.7 Hct (40.0-50.0) % 45.6 MCV (80-95) fL 87 MCH (27.0-33.0) pg 29.8 MCHC (32.0-36.0) % 34.4 RDW (11.8-14.1) % 12.4 Plt Count (130-400) 10^3/uL 295 MPV (8.0-11.0) fL 10.2 Immature Gran % 0.3 Neutrophils % 77.6 Lymphocytes % 14.5 Monocytes % 7.1 Eosinophils % 0.1 Basophils % 0.4 Nucleated RBC % (0.0-0.3) % 0.0 Absolute Neutrophils (1.2-6.7) 10^3/uL 9.12 H Absolute Lymphocytes (1.2-3.4) 10^3/uL 1.70 Absolute Monocytes (0.1-0.8) 10^3/uL 0.83 H Absolute Eosinophils (0.0-0.7) 10^3/uL 0.01 Absolute Basophils (0.0-0.2) 10^3/uL 0.05 VBG Lactate (0.6-1.4) mmol/L 1.0 Sodium (136-145) mmol/L 140 Potassium (3.5-5.1) mmol/L 3.4 L Chloride (98-107) mmol/L 102 Carbon Dioxide (21.0-32.0) mmol/L 25.9 Anion Gap (3-11) mmol/L 12.1 H BUN (7-18) mg/dL 20 H Creatinine (0.70-1.30) mg/dL 1.0 Est GFR (CKD-EPI 2020) (mL/min/1.73m2) 98.80 Glucose (74-106) mg/dL 100 Calcium (8.5-10.1) mg/dL 9.1 Magnesium (1.8-2.4) mg/dL 2.4 Cancelled Total Bilirubin (0.2-1.0) mg/dL 0.7 AST (15-37) U/L 16 ALT (16-63) U/L 26 Alkaline Phosphatase (46-116) U/L 103 Total Protein (6.4-8.2) g/dL 7.9 Albumin (3.4-5.0) g/dL 4.5 Ethyl Alcohol (<10) mg/dL < 3.0 Cancelled Quality:SDOH Health Related Social Needs: No Data to Display PFSH All Active Problems (Updated 03/07/24 @ 02:32 by Marisela Jaramillo MD) Medication reaction (Acute) Polysubstance (including opioids) dependence, daily use (Acute) [facility] ADHD (Acute) [facility] Major depressive disorder (Chronic) [facility] Tobacco abuse disorder (Acute) Displaced fracture of body of hamate [unciform] bone, right wrist, initial encounter for closed fracture (Acute) Closed displaced fracture of body of hamate of right wrist with routine healing (Acute 12/16/16) Medical History History of substance abuse Family History Mother , MVA at age 30. Asthma Father No problems noted. Sister No problems noted. Sister No problems noted. 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
[2024-03-07 01:10] LABS: Abs Immature Grans 0.04 10^3/uL (0.0-0.06); Absolute Basophil Count 0.05 10^3/uL (0.0-0.2); Absolute Eosinophil Count 0.01 10^3/uL (0.0-0.7); Absolute Monocyte Count 0.83 10^3/uL (0.1-0.8); Absolute Neutrophil Count 9.12 10^3/uL (1.2-6.7); Basophils % 0.4; Eosinophils % 0.1; HCT 45.6 % (40.0-50.0); HGB 15.7 g/dL (13.5-17.5); Immature Grans % 0.3; Lymphocytes % 14.5; MCH 29.8 pg (27.0-33.0); MCHC 34.4 % (32.0-36.0); MCV 87 fL (80-95); MPV 10.2 fL (8.0-11.0); Monocytes % 7.1; Neutrophils % 77.6; Platelet Count 295 10^3/uL (130-400); RBC 5.27 10^6/uL (4.36-5.78); RDW 12.4 % (11.8-14.1); RDW-SD 39.4 fL; WBC 11.75 10^3/uL (4.4-10.8)
[2024-03-07] MEDS: Acetaminophen 500 MG TAB 1000 MG PO (01:15)
[2024-03-07] MEDS: Ondansetron 4 MG/2 ML VIAL IVP (01:15)
[2024-03-07 01:23] LABS: ALT 26 U/L (16-63); AST 16 U/L (15-37); Albumin 4.5 g/dL (3.4-5.0); Alkaline Phosphatase 103 U/L (46-116); Anion Gap 12.1 mmol/L (3-11); BUN 20 mg/dL (7-18); Bilirubin, Total 0.7 mg/dL (0.2-1.0); CO2 25.9 mmol/L (21.0-32.0); Calcium 9.1 mg/dL (8.5-10.1); Chloride 102 mmol/L (98-107); Glucose 100 mg/dL (74-106); Magnesium 2.4 mg/dL (1.8-2.4); Potassium 3.4 mmol/L (3.5-5.1); Sodium 140 mmol/L (136-145); Total Protein 7.9 g/dL (6.4-8.2)
[2024-03-07 01:24] LABS: ETHANOL BLOOD < 3.0 mg/dL (<10)
[2024-03-07] MEDS: cloNIDine 0.1 MG TAB PO (02:06)
--- NOTE | 2024-03-07 02:24 | DI.VRAD_ITS ---
PROCEDURE INFORMATION: Exam: CT Head Without Contrast Exam date and time: 03/07/2024 1:22 AM Age: 38 years old Clinical indication: Other: Possible syncope TECHNIQUE: Imaging protocol: Computed tomography of the head without contrast. COMPARISON: CT HEAD CERVICAL SPINE WO 11/15/2018 6:18 PM FINDINGS: Brain: No acute intracranial hemorrhage, mass-effect, midline shift, or extra-axial collection is seen. The brito white matter differentiation appears preserved. Cerebral ventricles: The ventricular system and basilar cisterns appear appropriate in size and configuration. Paranasal sinuses: The visualized paranasal sinuses appear well-aerated. Mastoid air cells: The visualized mastoid air cells appear well aerated. Auditory system: The middle ear cavities appear clear. Bones/joints: The bony calvarium appears intact. No depressed skull fracture is seen. Soft tissues: No gross focal scalp hematoma is seen. IMPRESSION: No acute intracranial hemorrhage or depressed skull fracture. Dictated and Authenticated by: Doug Tam MD. Ordering:YUSEF Antonio MD
[2024-03-07] MEDS: Ketorolac 15 MG/ML VIAL IVP (02:39)
--- NOTE | 2024-03-07 16:01 | NUR.NOTE ---
At patient request provider note, labs. CT head report, EKG faxed to [facility]. P [phone] F [phone] Nursing Note:
== END 2024-03-07 03:31 | disposition home or self-care (01) ==
LOC: ER 03:01
PROVIDERS: Emergency Provider Student in an Organized Health Care Education/Training Program
DX: R11.0 Nausea (principal); R42 Dizziness and giddiness; R53.1 Weakness; T50.7X5A Adverse effect of analeptics and opioid receptor antagonists, initial encounter; I45.19 Other right bundle-branch block; F17.210 Nicotine dependence, cigarettes, uncomplicated
CPT/HCPCS: 80053; 93005; 96374; 96375; 99285; 70450; 80320; 83605; 83735; 85025; 93010; 99284; J1885; J2405

== ENCOUNTER 2024-11-05 21:09 | Emergency (ER) | payer MEDICAID, SELFPAY ==
--- NOTE | 2024-11-05 21:00 | RT.EKG_ITS ---
APPROVED REPORT Exam: Resting ECG Reason for Exam: CP Patient Location: E HR:100 bpm ECG Measurements Heart Rate 100 AXIS MI 139 P 84 QRSd 98 QRS 101 QT 365 T 23 QTc 470 Conclusion Sinus tachycardia...rate> 99 Right axis deviation...QRS axis (100,269) I have reviewed and interpreted ECG and agree with software generated interpretation.
[2024-11-05 21:08] VITALS: PULSE 102; RESP 18; O2SAT 98
[2024-11-05 21:11] VITALS: RESP 12
--- NOTE | 2024-11-05 21:39 | ED.GENADUL_ITS ---
Discharge Plan Disposition Patient Disposition: Home Condition: Good Discharge Details Clinical Impression: Esophageal spasm, Chest discomfort Primary Care Provider: Unknown,Unknown ED Provider: Fabio Fang Home Meds and New Rx's Prescriptions: New omeprazole 40 mg capsule,delayed release(DR/EC) 40 mg PO DAILY Qty: 60 0RF No Action mirtazapine 15 mg tablet 15 mg PO ONCE PRN Patient Comments: TAKE 1/2 TO 1 TABLET BY MOUTH AT NIGHT 1 HOUR BEFORE BEDTIME NEEDED FOR SLEEPLESSNESS OR INSOMNIA ibuprofen 600 mg tablet 600 mg PO Q6H PRN Patient Comments: TAKE 1 TABLET BY MOUTH EVERY 6 HOURS NEEDED FOR BREAKTHROUGH PAIN ondansetron 4 mg tablet,disintegrating 4 mg PO Q8H PRN Patient Comments: DISSOLVE 1 TABLET ON THE TONGUE EVERY 8 HOURS NEEDED FOR NAUSEA OR VOMITING clonidine HCl 0.1 mg tablet 0.1 mg PO Q6H PRN Patient Comments: TAKE 1-2 TABLETS BY MOUTH EVERY 4-6 HOURS NEEDED FOR SWEATING / ANXIETY / RESTLESSNESS. TAKE WITH FOOD AND FLUIDS. HOLD IF DIZZINESS bupropion HCl 150 mg tablet extended release 24 hr 300 mg PO ONCE Patient Comments: START WITH 1 TABLET BY MOUTH DAILY FOR 3 DAYS AND THEN INCREASE TO 2 TABLETS DAILY IN THE MORNING clonazepam 0.5 mg tablet 0.5 mg PO BID PRN Patient Comments: TAKE 1 TABLET BY MOUTH UP TO TWICE DAILY NEEDED FOR ANXIETY OR WITHDRAWALS SYMPTOMS hydroxyzine HCl 50 mg tablet 50 mg PO Q6H Patient Comments: TAKE 1 TABLET BY MOUTH EVERY 6 HOURS NEEDED FOR ANXIETY OR WITHDRAWALS OR SYMPTOMS buprenorphine-naloxone [Suboxone] 8-2 mg film 3 film sublingual DAILY Rx Instructions: use only 2 strips/tabs in mouth at one time, 1 under (each) side of tongue ibuprofen 800 mg tablet 600 mg PO TID PRN methadone 10 mg/mL concentrate 150 mg PO Q3H Discharge Instructions Instructions: Acid reflux and GERD in adults Additional Instructions: It is our recommendation that you get blood work for further diagnosis and evaluation of your pain. That being said I suspect that your symptoms are secondary to an esophageal spasm. Please avoid any spicy foods greasy foods tomato-based products. Please take the omeprazole as directed. If you do change your mind at any point you can return for reassessment and blood work. If you notice any worsening of your symptoms, or any new symptoms such as vomiting, diarrhea, fever, chills, shortness of breath, chest pain, numbness, weakness, or fainting , please return immediately to the emergency department for reevaluation. Please follow up with your primary care provider as soon as possible for reassessment and reevaluation. As always, it was a pleasure participating in your medical care today. HPI General Date/Time Provider Initiated Documentation: 11/05/24 21:18 . HPI Narrative: This is a 39-year-old male with a past medical history of polysubstance abuse, gastric ulcer, who presents today for evaluation of chest pain. Patient states that about an hour ago he had just walked home from work, while sitting down he developed a spasming sensation which she describes as tightness in his chest. It last for about a minute or so and then would go away. And then come back a few minutes later. He states that for dinner he had a bag of chips and sour patch kids. He denies any spicy foods otherwise. He denies any nausea or vomiting. He denies any burning sensation. He does admit to a gnawing sensation in his left upper quadrant. He denies any family history of cardiac disease. He denies any exertional chest discomfort. He denies any pleuritic chest pain. No particular aggravating or relieving factors. No other complaints at this time. He smoked marijuana, vapes, and smokes tobacco. He does present via EMS currently. He refused IV, aspirin and nitroglycerin by EMS. Twelve-lead was performed which was unremarkable. Related Data Home Medications ?Medication ?Instructions ?Recorded ?Confirmed buprenorphine 8 mg-naloxone 2 mg 3 film sublingual DAILY 03/07/24 11/05/24 sublingual film (Suboxone) bupropion HCl 150 mg 24 hr tablet, 300 mg PO ONCE 03/07/24 11/05/24 extended release clonazepam 0.5 mg tablet 0.5 mg PO BID PRN 03/07/24 11/05/24 clonidine HCl 0.1 mg tablet 0.1 mg PO Q6H PRN 03/07/24 11/05/24 hydroxyzine HCl 50 mg tablet 50 mg PO Q6H 03/07/24 11/05/24 ibuprofen 600 mg tablet 600 mg PO Q6H PRN 03/07/24 11/05/24 ibuprofen 800 mg tablet 600 mg PO TID PRN 03/07/24 11/05/24 mirtazapine 15 mg tablet 15 mg PO ONCE PRN 03/07/24 11/05/24 ondansetron 4 mg disintegrating 4 mg PO Q8H PRN 03/07/24 11/05/24 tablet methadone 10 mg/mL oral concentrate 150 mg PO Q3H 11/05/24 11/05/24 omeprazole 40 mg capsule,delayed 40 mg PO DAILY #60 caps 11/05/24 release Previous Rx's ?Medication ?Instructions ?Recorded omeprazole 40 mg capsule,delayed 40 mg PO DAILY #60 caps 11/05/24 release Allergies Allergy/AdvReac Type Severity Reaction Status Date / Time Sulfa (Sulfonamide Allergy Severe Anaphylaxsi Verified 11/05/24 21:12 Antibiotics) s General Stated Complaint: Chest Pain ABBY: 3 Exam Narrative Exam Narrative: 1.Const: Well-nourished, Well-developed, appearing stated age 2.Eyes: PERRL, no conjunctival injection, and symmetrical lids. 3.ENT: Atraumatic external nose and ears. Moist MM. Neck: Symmetric, trachea midline, No thyromegaly. 4.CVS: +S1/S2, Peripheral pulses 2+ and equal in all extremities. Brisk capillary refill in all extremities. 5.RESP: Unlabored respiratory effort. Clear to auscultation bilaterally. No wheezes rales or rhonchi 6.GI: Soft, Nontender/Nondistended, No hepatosplenomegaly. No guarding or rebound. Mild achiness on palpation of the left upper quadrant. No tenderness on palpation of the anterior chest wall sternum or ribs. 7.MSK: Normocephalic/Atraumatic, Extremities w/o deformity or ttp No cyanosis or clubbing, Normal movement of all extremities 8.Skin: Warm, Dry. No rashes or lesions. 9.Neuro: cheese sprayer II-XII grossly intact. Sensation grossly intact, no focal neurologic deficits. 10.Psych: (AAO) x3. Appropriate mood and affect Course Vital Signs Vital signs: Vital Signs Pulse 102 H 11/05/24 21:08 Respiratory Rate 18 11/05/24 21:08 Pulse Oximetry 98 11/05/24 21:08 Pulse 102 H 11/05/24 21:08 Respiratory Rate 12 11/05/24 21:11 Respiratory Effort Normal 11/05/24 21:11 Respiratory Depth Normal 11/05/24 21:11 Blood Pressure Position Sitting 11/05/24 21:08 Pulse Oximetry 98 11/05/24 21:08 Oxygen Delivery Method Room Air 11/05/24 21:08 Oxygen Flow Rate 0 11/05/24 21:08 Medical Decision Making This is a 39-year-old male with a past medical history of polysubstance abuse, gastric ulcer, who presents today for evaluation of chest pain. Patient states that about an hour ago he had just walked home from work, while sitting down he developed a spasming sensation which she describes as tightness in his chest. It last for about a minute or so and then would go away. And then come back a few minutes later. He states that for dinner he had a bag of chips and sour patch kids. He denies any spicy foods otherwise. He denies any nausea or vomiting. He denies any burning sensation. He does admit to a gnawing sensation in his left upper quadrant. He denies any family history of cardiac disease. He denies any exertional chest discomfort. He denies any pleuritic chest pain. No particular aggravating or relieving factors. No other complaints at this time. He smoked marijuana, vapes, and smokes tobacco. He does present via EMS currently. He refused IV, aspirin and nitroglycerin by EMS. Twelve-lead was performed which was unremarkable. Exam demonstrates a well-appearing male, stable vital signs. EKG demonstrates no evidence of STEMI. Radial pulses are +2 bilaterally. No reproducible chest wall discomfort. No pleuritic chest pain to suggest pulmonary embolism. No trauma to suggest pneumothorax. No shortness of breath. EKG shows no evidence of significant abnormality to suggest STEMI or other life-threatening etiology. Differential is highest for esophageal spasm and potential gastric irritation likely from diet. However potential cardiac etiology although less likely is on the differential. Patient unfortunately refuses IV access. Out of his concern for needles. We did offer different alleviating factors for this, which she has refused. We weighing the risks and benefits, and a the patient has refused imaging at this time. I did discuss how we could be missing a life-threatening or life disabling etiology by not getting labs. Patient is of an appropriate age to make decisions. The patient is of sound mind, appears clinically sober, and has capacity to make decisions by my clinical exam. Respecting the patient's wishes we will hold off on laboratory workup. Bedside ultrasound was performed and shows no evidence of pericardial effusion, cardiac wall abnormality, pneumothorax, or other atypical etiology. Patient will be given a GI cocktail, and a prescription for antacids. Patient would like to go home has no other workup will be done secondary to his refusal. I have extensively reviewed the treatment plan and discharge instructions with the patient. I have addressed all patient concerns at this time. The patient was made aware of what symptoms to monitor for that would warrant a return to the emergency department. Discussed the plan with the patient, they demonstrate verbal understanding and agreement with our assessment and plan at this time. The documentation in this chart was dictated using Aubrey dictation software. Please excuse any dictation errors. Quality:[facility] Health Related Social Needs: No Data to Display PFSH All Active Problems (Updated 11/05/24 @ 23:40 by Fabio Fang DO) Chest discomfort (Acute) Esophageal spasm (Acute) Polysubstance (including opioids) dependence, daily use (Acute) [facility]hra ADHD (Acute) [facility] Major depressive disorder (Chronic) [facility] Tobacco abuse disorder (Acute) Displaced fracture of body of hamate [unciform] bone, right wrist, initial encounter for closed fracture (Acute) Closed displaced fracture of body of hamate of right wrist with routine healing (Acute 12/16/16) Medical History History of substance abuse Family History Mother , MVA at age 30. Asthma Father No problems noted. Sister No problems noted. Sister No problems noted. 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 What type of physical activity do you participate in: other Details: physically active daily Seatbelt use: always Drive intox or ride w/intox rivet driver: No Working smoke detector in home: Yes Carbon monox detector in home: Yes Do you feel safe at home: Yes Do you feel safe in your relationship?: Yes POCUS Exam (ED) Limited Cardiac Exam DATE OF EXAM: 11/05/24 TIME OF EXAM: 23:39 PROVIDER THAT PERFORMED THE STUDY: Fabio Fang IS THIS A REPEAT EXAM DURING THIS ENCOUNTER: no REASON FOR EXAM: Chest pain VISUALIZED STRUCTURES: Left atrium, Left ventricle, Right ventricle and Interventricular septum VIEW OBTAINED: Parasternal long-axis and Parasternal short-axis PERTINENT FINDINGS/IMPRESSION: No apparent abnormalities Exam complete Limited Thoracic Lung Exam DATE OF EXAM: 11/05/24 TIME OF EXAM: 23:39 PROVIDER THAT PERFORMED THE STUDY: Fabio Fang IS THIS A REPEAT EXAM DURING THIS ENCOUNTER: No REASON FOR EXAM: Other (chest pain) indication: chest pain VISUALIZED STRUCTURES: right posterior and left posterior PERTINENT FINDINGS/
[2024-11-05 22:04] VITALS: BP 173/124; PULSE 99; O2SAT 97
== END 2024-11-05 22:05 | disposition home or self-care (01) ==
LOC: ER 22:09
PROVIDERS: Emergency Provider Student in an Organized Health Care Education/Training Program
DX: K22.4 Dyskinesia of esophagus (principal); R07.89 Other chest pain; R00.0 Tachycardia, unspecified; F17.210 Nicotine dependence, cigarettes, uncomplicated
CPT/HCPCS: 76604; 93005; 93308; 99284; 93010